=== PATIENT | female | born 1960 | race Two or more races ===

== ENCOUNTER 2024-05-01 18:52 | Emergency (ER) | payer MEDICAID, OTHER ==
[~2024-05-01] VITALS: Ht 160 cm; Wt 68.2 kg
[2024-05-01 19:08] VITALS: BP 148/77; PULSE 86; RESP 19; TEMP 97.8; O2SAT 98
== END 2024-05-01 21:18 | disposition left against medical advice (07) ==
LOC: ER 19:08
DX: R21 Rash and other nonspecific skin eruption (principal); Z53.21 Procedure and treatment not carried out due to patient leaving prior to being seen by health care provider